=== PATIENT | female | born 1970 | race Native Hawaiian/Other Pacific Islander ===

== ENCOUNTER 2016-07-25 08:44 | Outpatient (CLI) | payer OTHER ==
[~2016-07-25 08:44] MED LIST: ALBU90AE13 INH; BUDE1AER5 INH; CLARITIN10 MG PO; DEXILANT30 MG PO; DIOVAN40 MG PO; FLUT0.05 NAS; LEXAPRO10 MG PO; LISI10TA11 PO; MONTELUKAST SOD10 MG PO; PROZAC10 MG PO; SIMV10TA PO; VALA500T2 PO
== END 2016-07-25 19:19 | disposition home or self-care (01) ==
LOC: CT 08:44
DX: Z12.31 Encounter for screening mammogram for malignant neoplasm of breast (principal); J32.0 Chronic maxillary sinusitis
CPT/HCPCS: G0202-TC

== ENCOUNTER 2016-07-28 15:24 | Outpatient (CLI) | payer OTHER | END 2016-07-28 16:30 | disposition home or self-care (01) | LOC: CT 15:24 | DX: J45.909 Unspecified asthma, uncomplicated (principal) ==

== ENCOUNTER 2016-09-09 05:27 | Emergency (ER) | payer OTHER ==
[~2016-09-09] VITALS: Ht 154.9 cm; Wt 75.3 kg
[2016-09-09 05:37] VITALS: BP 99/57; TEMP 97.9
[2016-09-09 07:36] LABS: PLATELET COUNT 308 K/uL (152-353)
[2016-09-09 07:50] LABS: POTASSIUM 2.9 mmol/L (3.6-5.2)
[2016-09-09 08:39] LABS: PARTIAL THROMBOPLASTIN TIME 20.6 SECONDS (24.5-33.6)
== END 2016-09-09 11:30 | disposition home or self-care (01) ==
LOC: ED 05:27
PROVIDERS: Emergency Medicine
DX: F41.9 Anxiety disorder, unspecified (principal); R06.00 Dyspnea, unspecified; J45.901 Unspecified asthma with (acute) exacerbation; R00.0 Tachycardia, unspecified
CPT/HCPCS: 36415; 80053; 82550; 83880; 84443; 84484; 85027; 85610; 85730; 86318; 93005; 99283

== ENCOUNTER 2017-03-08 07:28 | Observation (INO) | payer OTHER ==
[2017-03-08] VITALS (7 sets, daily range): BP systolic 123–161; BP diastolic 72–86; TEMP 97.9–98.6; Ht 154.9 cm; Wt 75.9 kg
[~2017-03-08] VITALS: Ht 154.9 cm; Wt 75.9 kg
[2017-03-08 07:59] LABS: PLATELET COUNT 317 K/uL (152-353)
[2017-03-08 08:11] LABS: POTASSIUM 3.6 mmol/L (3.6-5.2); SODIUM 141 mmol/L (136-145)
--- NOTE | 2017-03-08 16:30 | NUR ---
Pt. TO [facility] FOR [facility]. Pt. CRISPIN WELL. Pt. PUT SHIRT ON WITHOUT ASSIST. AMBULATE WITH 2 PERSON ASSIST. Pt. HAS DIFFULT MOVING LEGS.
[2017-03-09] VITALS: BP 115/71; TEMP 97.4
[2017-03-09 04:00] VITALS: BP 123/73; TEMP 98.2
[2017-03-09 05:14] LABS: PLATELET COUNT 285 K/uL (152-353)
[2017-03-09 05:31] LABS: POTASSIUM 3.8 mmol/L (3.6-5.2); SODIUM 136 mmol/L (136-145)
[2017-03-09 08:00] VITALS: BP 132/77; TEMP 98.2
[2017-03-09 16:00] VITALS: BP 137/91; TEMP 97.5
[2017-03-09 20:00] VITALS: BP 133/83; TEMP 98.3
[2017-03-10] VITALS: BP 130/76; TEMP 98.2
--- NOTE | 2017-03-10 01:58 | NUR ---
CALL TO PT ROOM D/T PT BEING SOB. LIFTED HEAD OF BED. NOTIFIED RT. OF ASTHMA ATTACK. FOLLOWED UP WITH PT 20 MINUTES LATER AND PT WAS NO LONGER IN DISTRESS. WILL CONTINUE TO MONITOR.
[2017-03-10 04:00] VITALS: BP 106/65; TEMP 98.7
[2017-03-10 06:06] LABS: PLATELET COUNT 272 K/uL (152-353)
[2017-03-10 06:21] LABS: POTASSIUM 4.1 mmol/L (3.6-5.2); SODIUM 136 mmol/L (136-145)
[2017-03-10 08:00] VITALS: BP 117/74; TEMP 98.6
[2017-03-10] MEDS ORDERED: FLONASE AL50 MCG/ACT (10:25)
[2017-03-10] MEDS ORDERED: AZEL137S (10:26)
[2017-03-10] MEDS ORDERED: XYZAL ALLERGY 245 MG PO (10:26)
[2017-03-10] MEDS ORDERED: QVAR80 MCG IN (10:26)
[2017-03-10] MEDS ORDERED: PROAIR HFA IN (10:27)
[2017-03-10] MEDS ORDERED: ALBUSOL IN (10:28)
[2017-03-10] MEDS ORDERED: STIOLTO (10:29)
--- NOTE | 2017-03-10 11:45 | NUR ---
D/C INSTRUCTIONS GIVEN. IV'S D/C'D PER DRS ORDERS. PT UNDERSTANDS FOLLOW UP ORDERS AND APPOINTMENTS. RX SENT TO PHARMACY.
--- NOTE | 2017-03-10 12:12 | NUR ---
PT D/C'D VIA WC WITH FAMILY AT SIDE. NAD NOTED.
== END 2017-03-10 11:26 | disposition home or self-care (01) ==
LOC: ED 07:28 → MED/SURG 11:15
PROVIDERS: Specialist
DX: J45.41 Moderate persistent asthma with (acute) exacerbation (principal); R06.02 Shortness of breath
CPT/HCPCS: 36415; 36600; 80048; 80053; 81241; 82805; 83090; 83735; 85027; 85302; 85305; 85379; 86039; 86430; 94640; 94664; 94760; 96361; 96365; 96367; 96372; 96375; 99220; 99284; A9540; A9567; G0378; J1200; J1650; J1885; J2780; J3475; Q9963

== ENCOUNTER 2019-12-19 07:59 | Outpatient (CLI) | payer OTHER ==
[~2019-12-19 07:59] MED LIST changes: +ALBUSOL IN; +AZEL137S; +FLONASE AL50 MCG/ACT; +PROAIR HFA IN; +QVAR80 MCG IN; +STIOLTO; +XYZAL ALLERGY 245 MG PO
[2019-12-19 08:17] LABS: PLATELET COUNT 236 K/uL (152-353)
[2019-12-19 08:31] LABS: POTASSIUM 3.9 mmol/L (3.6-5.2)
== END 2019-12-19 19:25 | disposition home or self-care (01) ==
LOC: CT 07:59
PROVIDERS: Nurse Practitioner Family
DX: R10.84 Generalized abdominal pain (principal); R11.2 Nausea with vomiting, unspecified; E66.9 Obesity, unspecified
CPT/HCPCS: 36415; 80053; 85027; Q9963

== ENCOUNTER 2019-12-25 18:20 | Outpatient (CLI) | payer OTHER | END 2019-12-25 22:32 | disposition home or self-care (01) | LOC: LABW 18:20 | DX: K76.0 Fatty (change of) liver, not elsewhere classified (principal) | CPT/HCPCS: 36415; 82728; 82784; 83516; 83540; 83550; 86038 ==

== ENCOUNTER 2020-01-22 12:03 | Outpatient (CLI) | payer OTHER | END 2020-01-22 19:50 | disposition home or self-care (01) | LOC: RAD 12:03 | PROVIDERS: ATTEND Nurse Practitioner | DX: R11.10 Vomiting, unspecified (principal) ==

== ENCOUNTER 2020-02-10 17:45 | Outpatient (CLI) | payer OTHER | END 2020-02-10 22:22 | disposition home or self-care (01) | LOC: LABW 17:45 | PROVIDERS: ATTEND Allergy & Immunology | DX: T78.2XXD Anaphylactic shock, unspecified, subsequent encounter (principal); R11.10 Vomiting, unspecified ==

== ENCOUNTER 2021-01-01 12:45 | Outpatient (CLI) | payer OTHER | END 2021-01-01 19:26 | disposition home or self-care (01) | LOC: RAD 12:45 → MAMMO 13:30 → RAD 19:26 | PROVIDERS: ATTEND Obstetrics & Gynecology | DX: Z13.820 Encounter for screening for osteoporosis (principal); Z12.31 Encounter for screening mammogram for malignant neoplasm of breast ==

== ENCOUNTER 2021-04-14 16:25 | Outpatient (CLI) | payer OTHER | END 2021-04-14 19:41 | disposition home or self-care (01) | LOC: CT 16:25 | PROVIDERS: ATTEND Physician Assistant | DX: R07.89 Other chest pain (principal) | CPT/HCPCS: Q9963 ==